=== PATIENT | male | born 1980 | race Caucasian/White ===

== ENCOUNTER 2021-02-03 19:01 | Emergency (ER) | payer OTHER ==
[~2021-02-03] VITALS: Ht 171.4 cm; Wt 129.6 kg
[2021-02-04] MEDS ORDERED: OLANZapine 5 MG TABLET PO ONE (14:45)
[2021-02-04] MEDS ORDERED: DIVALPROEX SODIUM 500 MG ER TABLET PO ONE (14:45)
[2021-02-04 15:41] VITALS: BP 128/82
== END 2021-02-04 09:00 | disposition home or self-care (01) ==
LOC: EMS 19:01
DX: F20.9 Schizophrenia, unspecified (principal); Z76.0 Encounter for issue of repeat prescription; I10 Essential (primary) hypertension
CPT/HCPCS: 99283; 99284